=== PATIENT | female | born 1945 | race Hispanic/Latino ===

== ENCOUNTER → 2018-08-24 | Day surgery (SDC) | payer MEDICARE ==
[2018-08-21 12:45] LABS: BASOPHILS % 0.4 % (0.0-1.0); EOSINOPHILS # (AUTO) 0.2 (0.0-0.4); EOSINOPHILS % 2.2 % (0.0-6.0); HEMATOCRIT 39.4 % (34.2-44.1); HEMOGLOBIN 12.9 g/dL (12.0-16.0); LYMPHOCYTES # (AUTO) 1.9 (1.0-3.2); LYMPHOCYTES % 26.5 % (18.0-39.1); MEAN CORPUSCULAR HGB CONC 32.7 g/dL (31-35); MEAN CORPUSCULAR VOLUME 91.6 fL (81-99); MONOCYTES # (AUTO) 0.5 (0.2-0.8); MONOCYTES % 7.4 % (4.4-11.3); NEUTROPHILS # (AUTO) 4.6 (2.1-6.9); NEUTROPHILS % 63.2 % (38.7-80.0); PLATELET COUNT 227 x10e3/uL (140-360)
[~2018-08-24] MED LIST: AMLODIPINE BESYL5 MG PO; FENTANYL CITRATE/PF 100MCG/2 ML INJ ONE; LIDOCAINE HCL 2% LOCAL INJ 5 ML SDV VIAL INJ ONE; MAGNESIUM100 MG PO; PROPOFOL IV EMULSION 10 MG/ML 50 ML VIAL IV ONE; Z.0.LASIX20 MG; Z.0.LISINOPRIL40 MG PO
--- OUTSIDE RECORDS SUMMARY | 2018-08-24 07:08 | XMS REPORT ---
Author Organization Unknown Address [address] [place] [address] Phone [phone] Care Team Providers Care Tour Director Name Role Phone DR. RODERICK WALDEN 3 [phone] Allergies Code Code System Name Reaction Severity Status Onset 2670 RxNorm Codeine Confusion Active 3640 RxNorm Doxycycline Hives Severe Active 6980 RxNorm Minocycline Hives Severe Active Penicillins Hives Moderate to Severe Active Sulfa (Sulfonamide Antibiotics) Hives Moderate to Severe Active Medications Name Status Start Date Stop Date amlodipine 5 mg tablet TAKE 1 TABLET BY MOUTH EVERY DAY Active Not available azithromycin 250 mg tablet Completed 01/05/2018 benzonatate 200 mg capsule Take 1 capsule 3 times a day by oral route. Completed 01/05/2018 Cheratussin AC 10 mg-100 mg/5 mL oral liquid Take 10 mL every 6-8 hours by oral route as needed for 5 days. Completed 01/20/2018 Depo-Medrol 80 mg/mL suspension for injection Take 80 mg by injection route. Active Not available fluticasone 50 mcg/actuation nasal spray,suspension Active Not available ibuprofen 800 mg tablet Active Not available levofloxacin 500 mg tablet Active Not available lisinopril 40 mg tablet TAKE 1 TABLET BY MOUTH EVERY DAY. ( MUST CALL FOR APPOINTMENT.) Active Not available methylprednisolone 4 mg tablets in a dose pack Completed 01/05/2018 Javon Quiroz PRN Active Not available triamcinolone acetonide 0.1 % topical cream Completed 01/05/2018 Ventolin HFA 90 mcg/actuation aerosol inhaler Active Not available Notes: [id number]- QD Problems Name Status Onset Date Source Severe Obesity Active 05/13/2017 Benign Hypertensive Heart Disease without Congestive Heart Failure Active 05/13/2017 Coronary Arteriosclerosis Active 05/13/2017 Osteopenia Active 05/13/2017 Body Mass Index 40+ - Severely Obese Active 05/13/2017 Procedures Date Name Performed by 10/17/2005 Knee Surgery Notes: both knees Information not available 05/13/2017 MAMMO, Screening, Bilateral [facility] Only [address] [place], [place] [id number] (Work Place) 05/13/2017 Bone Density [facility] [address] [place] [address] (Work [address]) Notes: Patient indicated no previous surgeries on (01/20/2018) Lab Results None recorded. Past Encounters 01/20/2018 Acute Bronchitis Roderick Escalante MD: [address] [place] [phone], Ph. 01/17/2018 Acute Bronchitis; Acute Sinusitis; Morbid Obesity Roderick Escalante MD: [address] [place] [phone], Ph. 01/05/2018 At Risk for Falls; Depression Screening; Body Mass Index 40+ - Severely Obese; Osteoarthritis of Knee Bruno Glover MD: [address] [place] [phone], Ph. 02/04/2017 Upper Respiratory Infection; Essential Hypertension; Obesity Boogie Mccray Jr, MD: [address] [facility], [facility], [place] [address], Ph. Social History Smoking Status Never Smoker Vaccine List Notes: NONE per pt 4/6/18-gg Plan of Care Patient Instructions Increase PO fluids. Complete all antibiotics as prescribed. Call or RTC for worsening of symptoms or no improvement in 2-3 days. Reminders Provider Appointments None recorded. Lab None recorded. Referral None recorded. Procedures None recorded. Surgeries None recorded. Imaging None recorded. Vitals 01/20/2018 01:30PM Est Patient Height Weight BMI Blood Pressure 5 ft 1 in 245 lbs 46.3 kg/m2 (1) 142/80 mm[Hg] (2) 152/90 mm[Hg] 01/17/2018 04:00PM Est Patient Height Weight Blood Pressure 5 ft 1 in (1) 156/86 mm[Hg] (2) 134/78 mm[Hg] 01/05/2018 03:00PM Est Patient Height Weight BMI Blood Pressure 5 ft 1 in 250 lbs 47.2 kg/m2 138/78 mm[Hg] 02/04/2017 10:45AM Work In Same Day Height Weight BMI Blood Pressure 5 ft 1 in 232.2 lbs 43.9 kg/m2 136/82 mm[Hg]
[2018-08-24 10:30] VITALS: BP 105/70
== END | disposition home or self-care (01) ==
LOC: OR 06:57
PROVIDERS: ATTEND Internal Medicine Gastroenterology
DX: Z12.11 Encounter for screening for malignant neoplasm of colon (principal); D12.2 Benign neoplasm of ascending colon; D12.4 Benign neoplasm of descending colon; K64.8 Other hemorrhoids; Z71.3 Dietary counseling and surveillance; E66.01 Morbid (severe) obesity due to excess calories; I10 Essential (primary) hypertension; G47.33 Obstructive sleep apnea (adult) (pediatric); Z88.0 Allergy status to penicillin; Z01.810 Encounter for preprocedural cardiovascular examination; Z01.812 Encounter for preprocedural laboratory examination; Z68.41 Body mass index [BMI] 40.0-44.9, adult
CPT/HCPCS: 36415; 45385; 85025; 88305; 93005; J2001; 45378

== ENCOUNTER 2019-07-24 10:58 | Outpatient (RCR) | payer MEDICARE ==
[~2019-07-24 10:58] MED LIST changes: -FENTANYL CITRATE/PF 100MCG/2 ML INJ ONE; -LIDOCAINE HCL 2% LOCAL INJ 5 ML SDV VIAL INJ ONE; -PROPOFOL IV EMULSION 10 MG/ML 50 ML VIAL IV ONE
== END 2019-08-16 ==
LOC: OT 10:58
PROVIDERS: ATTEND Plastic Surgery
DX: M18.12 Unilateral primary osteoarthritis of first carpometacarpal joint, left hand (principal); M25.542 Pain in joints of left hand